=== PATIENT | female | born 1965 | race Caucasian/White ===

== ENCOUNTER → 2019-08-30 | Outpatient (CLI) | payer BC, OTHER ==
[~2019-08-30] MED LIST: ACYCLOVIR 400400 MG PO; ATIVAN1 MG PO; CIPROFLOXACIN500 M1 PO; NORCO 5-325 TA1 EACH PO
== END ==
LOC: MRI 12:27
DX: M50.222 Other cervical disc displacement at C5-C6 level (principal); M79.601 Pain in right arm; M79.602 Pain in left arm